=== PATIENT | female | born 1995 | race African-American/Black ===

== ENCOUNTER 2020-07-19 17:47 | Emergency (ER) | payer OTHER | END 2020-07-19 19:20 | disposition home or self-care (01) | LOC: EDH 17:47 | DX: S61.432A Puncture wound without foreign body of left hand, initial encounter (principal); X58.XXXA Exposure to other specified factors, initial encounter; Y93.89 Activity, other specified; Y92.89 Other specified places as the place of occurrence of the external cause; Y99.8 Other external cause status | CPT/HCPCS: 36415; 86701; 86704; 86706; 87390; 87520 ==